=== PATIENT | female | born 1960 | race Caucasian/White ===

== ENCOUNTER 2017-05-28 12:45 | Day surgery (SDC) | payer OTHER ==
[2017-05-28] MEDS ORDERED: LIDOCAINE 2% (SDV) 5 ML INJ (16:00)
[2017-05-28] MEDS ORDERED: PROPOFOL 20 ML (16:00)
[2017-05-28] MEDS ORDERED: MIDAZOLAM 1 MG/ML 2 ML INJ (16:01)
[2017-05-28] MEDS ORDERED: FENTAnyl 50 MCG/ML VIAL (16:01)
== END 2017-05-28 18:09 | disposition home or self-care (01) ==
LOC: GIL 12:45
DX: Z12.11 Encounter for screening for malignant neoplasm of colon (principal); K29.50 Unspecified chronic gastritis without bleeding; K57.90 Diverticulosis of intestine, part unspecified, without perforation or abscess without bleeding; K64.4 Residual hemorrhoidal skin tags; K20.9 Esophagitis, unspecified
CPT/HCPCS: 43239; 88305; 88312